=== PATIENT | female | born 1975 | race Caucasian/White ===

== ENCOUNTER 2018-05-27 18:51 | Emergency (ER) | payer OTHER ==
[~2018-05-27] VITALS: Ht 157.5 cm; Wt 84.0 kg
[2018-05-27] MEDS ORDERED: IBUPROFEN 600MG TABLET PO STA (23:37)
[2018-05-27 23:53] VITALS: BP 166/105
== END 2018-05-28 00:22 | disposition home or self-care (01) ==
LOC: ER 18:51
DX: K02.9 Dental caries, unspecified (principal); K05.10 Chronic gingivitis, plaque induced; R51 Headache; R11.0 Nausea; Z91.013 Allergy to seafood
CPT/HCPCS: 99283